=== PATIENT | female | born 1990 | race American Indian/Alaskan Native ===

== ENCOUNTER 2018-10-30 08:58 | Inpatient (IN) | payer BC ==
[2018-10-30 09:16] VITALS: BMI 34.5
--- NOTE | 2018-10-30 09:51 | HP ---
CIWA Score Nausea/Vomitin Muscle Tremors: 2 Anxiety: 4-Mod. Anxious/Guarded Agitation: 3 Paroxysmal Sweats: 2 Orientation: 0-Oriented Tacttile Disturbances: 2-Mild Itch/Numbness/Burn Auditory Disturbances: 0-None Visual Disturbances: 0-None Headache: 1-Very Mild CIWA-Ar Total Score: 16 - Admission Criteria [facility]ASAS Guidelines: Admission for Medically Managed Detox: Requires at least one of the followin. CIWA greater than 12 2. Seizures within the past 24 hours 3. Delirium tremens within the past 24 hours 4. Hallucinations within the past 24 hours 5. Acute intervention needed for co occurring medical disorder 6. Acute intervention needed for co occurring psychiatric disorder 7. Severe withdrawal that cannot be handled at a lower level of care (continued vomiting, continued diarrhea, abnormal vital signs) requiring intravenous medication and/or fluids 8. Patient presents the following: CIWA greater than 12 Admission Criteria Met: Admission criteria met Admission ROS [facility] Chief Complaint: I am going back to work in 2 weeks and I need help Allergies/Adverse Reactions: Allergies Allergy/AdvReac Type Severity Reaction Status Date / Time No Known Allergies Allergy Verified 10/30/18 09:05 History of Present Illness: 28 year old female presents for detox from alcohol. She reports she started drinking heavily 4 months ago following a family issue. She reports blackouts almost every night, denies seizures. Patient is on Xanax 1mg daily (confirmed) to manage her anxiety, her UTOX is negative, she reports she has been taking it as needed, last time she took was sometime last week. Patient has a pink blanket which she is inappropriately attached to and will not let go ( blanket belongs to her 2 year old daughter who has been taken away from her due to her drinking habits and anxiety). In order to help decrease her anxiety level, she has been granted permission to keep blanket following thorough search by nursing staff and security, discussed with nursing dispatch supervisor who is in agreement with plan. Exam Limitations: No Limitations - Ebola screening Have you traveled outside of the country in the last 21 days: No (N) Have you had contact with anyone from an Ebola affected area: No Have you been sick,other than usual withdrawal symptoms: No Do you have a fever: No - Review of Systems Constitutional: Chills, Unintentional Wgt. Loss EENT: reports: Blurred Vision Respiratory: reports: Cough Cardiac: reports: No Symptoms Reported GI: reports: Abdominal Distended, Poor Appetite, Poor Fluid Intake, Abdominal cramping : reports: No Symptoms Reported Musculoskeletal: reports: Back Pain (lower), Joint Pain Integumentary: reports: No Symptoms Reported Neuro: reports: Headache Endocrine: reports: No Symptoms Reported Hematology: reports: No Symptoms Reported Psychiatric: reports: Orientated x3, Anxious (severe) Other Systems: Reviewed and Negative Patient History - Patient Medical History Hx Anemia: No Hx Asthma: No Hx Chronic Obstructive Pulmonary Disease (COPD): No Hx Cancer: No Hx Cardiac Disorders: No Hx Congestive Heart Failure: No Hx Hypertension: No Hx Hypercholesterolemia: No Hx Pacemaker: No HX Cerebrovascular Accident: No Hx Seizures: No Hx Dementia: No Hx Diabetes: No Hx Gastrointestinal Disorders: No Hx Liver Disease: No Hx Genitourinary Disorders: No Hx Sexually Transmitted Disorders: No Hx Renal Disease (ESRD): No Hx Thyroid Disease: No Hx Human Immunodeficiency Virus (HIV): No Hx Hepatitis C: No Hx Depression: No Hx Suicide Attempt: No Hx Bipolar Disorder: No Hx Schizophrenia: No Other Medical History: Severe anxiety - Patient Surgical History Past Surgical History: No - PPD History Previous Implant?: Yes Documented Results: Negative w/o proof Implanted On Prior [facility] Admission?: No PPD to be Administered?: No - Reproductive History Patient is a Female of Child Bearing Age (11 -55 yrs old): Yes Last Menstrual Period: 09/09/18 Patient : No - Smoking Cessation Smoking history: Current every day smoker Have you smoked in the past 12 months: Yes Aproximately how many cigarettes per day: 10 Hx Chewing Tobacco Use: No Initiated information on smoking cessation: Yes 'Breaking Loose' booklet given: 10/30/18 - Substance & Tx. History Hx Alcohol Use: Yes Hx Substance Use: No Substance Use Type: Alcohol Hx Substance Use Treatment: No - Substances abused Alcohol Substance route: Oral Frequency: Daily Amount used: 2-3 liters of vodka, 5(24oz) beers,2 margaritas Age of first use: 28 Date of last use: 10/30/18 Admission Physical Exam [facility] - Vital Signs Vital Signs: Vital Signs - 24 hr 10/30/18 09:05 Temperature 98.0 F Pulse Rate 94 H Respiratory 18 Rate Blood Pressure 106/78 - Physical General Appearance: Yes: Alcohol on Breath, Irritable, Anxious HEENTM: Yes: Hearing grossly Normal, Normocephalic, Normal Voice, Pharynx Normal Respiratory: Yes: Chest Non-Tender, Lungs Clear, Normal Breath Sounds, No Respiratory Distress, No Accessory Muscle Use Neck: Yes: No masses,lesions,Nodules, Supple Breast: Yes: Breast Exam Deferred Cardiology: Yes: Regular Rhythm, Regular Rate, S1, S2 Abdominal: Yes: Normal Bowel Sounds, Non Tender, Soft Genitourinary: Yes: Within Normal Limits Back: Yes: Normal Inspection Musculoskeletal: Yes: full range of Motion, Gait Steady, Pelvis Stable Extremities: Yes: Normal Inspection, Normal Range of Motion Neurological: Yes: deputy court II-XII NML intact, Fully Oriented, Alert, Motor Strength 5/5, Normal Response Integumentary: Yes: Normal Color Lymphatic: Yes: Within Normal Limits - Diagnostic (1) Alcohol dependence, uncomplicated Current Visit: Yes Status: Acute (2) Generalized anxiety disorder Current Visit: Yes Status: Acute (3) Nicotine dependence Current Visit: Yes Status: Acute Qualifiers: Nicotine product type: cigarettes Substance use status: uncomplicated Qualified Code(s): F17.210 - Nicotine dependence, cigarettes, uncomplicated Cleared for Admission [facility] - Detox or Rehab [facility] Level of Care: Medically Managed Detox Regimen/Protocol: Librium Claeared for Rehab Admission: No Breathalyzer - Breathalyzer Breathalyzer: 0.213 Urine Drug Screen - Test Device Lot number: [id number] Expiration date: 07/09/20 - Control Is test valid?: Yes - Results Drug screen NEGATIVE: Yes Inpatient Rehab Admission - Rehab Decision to Admit Inpatient rehab admission?: No
[2018-10-30] MEDS ORDERED: MAGNESIUM CITRATE 300 ML BOTTLE PO PRN (10:09)
[2018-10-30] MEDS ORDERED: BISMUTH SUBSALICYLATE 524 MG/30 ML UD PO PRN (10:09)
[2018-10-30] MEDS ORDERED: MENTHOL/PHENOL 1 EACH UD MM PRN (10:09)
[2018-10-30] MEDS ORDERED: MAGNESIUM HYDROX 2400MG/30ML ORAL SUSPENSION 30 ML CUP PO PRN (10:09)
[2018-10-30] MEDS ORDERED: IBUPROFEN 400 MG TABLET (FP) PO PRN (10:09)
[2018-10-30] MEDS ORDERED: hydrOXYzine PAMOATE 50 MG CAPSULE (FP) PO PRN (10:09)
[2018-10-30] MEDS ORDERED: MELATONIN 5 MG TABLETS PO PRN (10:09)
[2018-10-30] MEDS ORDERED: MAG HYDROX/AL HYDROX/SIMETH 30 ML UNIT-DOSE CUP PO PRN (10:09)
[2018-10-30] MEDS ORDERED: ACETAMINOPHEN 325 MG TABLET (FP) PO PRN ×2 (10:09)
[2018-10-30] MEDS ORDERED: NICOTINE POLACRILEX 2 MG GUM BUC PRN (10:16)
[2018-10-30] MEDS ORDERED: NICOTINE 14 MG/24 HOURS TOPICAL PATCH TD SCH (10:30)
[2018-10-30] MEDS: chlordiazePOXIDE HCL 10 MG CAPSULE PO PRN ×2 (11:54→17:17)
[2018-10-30] MEDS: METHOCARBAMOL 500 MG TABLET PO PRN ×2 (11:54→17:15)
[2018-10-30] MEDS: chlordiazePOXIDE HCL 25 MG CAPSULE PO SCH ×2 (13:53→22:00)
[2018-10-30 14:47] LABS: HEMATOCRIT 43.6 % (32.4-45.2); HEMOGLOBIN 14.5 GM/dL (10.7-15.3); MCH 30.9 pg (25.7-33.7); MCHC 33.3 g/dl (32.0-36.0); PLATELET COUNT 310 K/MM3 (134-434); RBC 4.69 M/mm3 (3.60-5.2); RDW 14.6 % (11.6-15.6); WHITE BLOOD COUNT 8.4 K/mm3 (4.0-10.0)
[2018-10-30 14:53] LABS: ALBUMIN 3.9 g/dl (3.4-5.0); BILIRUBIN,TOTAL 0.3 mg/dL (0.2-1); BLOOD UREA NITROGEN 19.3 mg/dL (7-18); CALCIUM 8.9 mg/dL (8.5-10.1); CREATININE 0.7 mg/dL (0.55-1.3); POTASSIUM 4.3 mmol/L (3.5-5.1); TOT PROT 7.9 g/dl (6.4-8.2)
[2018-10-30] MEDS ORDERED: THIAMINE HCL 100 MG TABLET (FP) PO SCH (22:00)
[2018-10-30 23:39] VITALS: BP 132/89; PULSE 96; TEMP 98.3
--- NOTE | 2018-10-31 05:19 | DS ---
[facility] Detox Discharge Summary Admission Date: 10/30/18 Discharge Date: 10/30/18 - History Present History: Alcohol Dependence Additional Comments: CLIENT ABORTED ADMISSION AND SIGNED OUT AMA. STATED SHE IS BEING PICKED UP BY HER FAMILY. SHE IS NOT RECEPTIVE TO ANY ENCOURAGEMENT AND EMOTIONAL SUPPORT GIVEN TO CONTINUE TXMENT.SHE ACCEPTS RISKS INVOLVED IN ABRUPTING THERAPY. TO INCLUDE SEIZURE AND POSSIBLE . Pertinent Past History: [facility] - Physical Exam Results Vital Signs: Vital Signs Temperature 98.3 F 10/30/18 23:15 Pulse Rate 96 H 10/30/18 23:15 Respiratory Rate 18 10/30/18 23:15 Blood Pressure 132/89 10/30/18 23:15 O2 Sat by Pulse Oximetry (%) Pertinent Admission Physical Exam Findings: WITHDRAWAL SX'S Laboratory Tests 10/30/18 10/30/18 10/30/18 10:25 10:25 10:25 WBC 8.4 RBC 4.69 Hgb 14.5 Hct 43.6 MCV 93.0 MCH 30.9 MCHC 33.3 RDW 14.6 Plt Count 310 MPV 8.0 Sodium 140 Potassium 4.3 Chloride 106 Carbon Dioxide 26 Anion Gap 9 BUN 19.3 H Creatinine 0.7 Est GFR (CKD-EPI)AfAm 138.59 Est GFR (CKD-EPI)NonAf 119.58 Random Glucose 92 Calcium 8.9 Total Bilirubin 0.3 AST 19 ALT 32 Alkaline Phosphatase 90 Total Protein 7.9 Albumin 3.9 RPR Titer Nonreactive - Treatment Hospital Course: Discharged Condition Good (CLIENT LEFT A/O X3 NAD. AMBULATING W /O DIFFICULTY. DENIES SI/HI, AVH) Patient has Accepted a Rehab Referral to: DECLINED - Medication Discharge Medications: Ambulatory Orders Alprazolam [Xanax] 1 mg PO DAILY 10/30/18 - Diagnosis (1) Alcohol dependence, uncomplicated Status: Acute (2) Generalized anxiety disorder Status: Acute (3) Nicotine dependence Status: Acute Qualifiers: Nicotine product type: cigarettes Substance use status: uncomplicated Qualified Code(s): F17.210 - Nicotine dependence, cigarettes, uncomplicated - AMA Did Patient Leave Against Medical Advice: Yes (CLIENT LEFT 10/30/2018 AT 2315 PM)
[2018-10-31] MEDS ORDERED: PRENATAL VITAMINS W/ FOLIC ACID TABLET (FP) PO SCH (10:00)
[2018-11-01] MEDS ORDERED: chlordiazePOXIDE 5 MG CAPSULE PO SCH (05:00)
[2018-11-02] MEDS ORDERED: chlordiazePOXIDE HCL 10 MG CAPSULE PO PRN
[2018-11-02] MEDS ORDERED: chlordiazePOXIDE HCL 10 MG CAPSULE PO SCH (05:00)
[2018-11-03] MEDS ORDERED: chlordiazePOXIDE HCL 10 MG CAPSULE PO ONE (11:00)
== END 2018-10-30 23:19 | disposition left against medical advice (07) | DRG 770 ==
LOC: YASAS 08:58 → Y3N 10:45
PROVIDERS: ADMIT Surgery; ATTEND Surgery
PROC: HZ2ZZZZ Detoxification Services for Substance Abuse Treatment (ICD-10-PCS; principal; 2018-10-30)
DX: F10.230 Alcohol dependence with withdrawal, uncomplicated (principal); F17.210 Nicotine dependence, cigarettes, uncomplicated; F41.1 Generalized anxiety disorder
CPT/HCPCS: 36415; 80053; 81025; 85027; 86593